=== PATIENT | male | born 1985 | race Caucasian/White ===

== ENCOUNTER → 2017-12-03 17:00 | Outpatient (CLI) | payer BC, SELFPAY | PROVIDERS: Family Provider Family Medicine; PCP Family Medicine; Visit Provider Surgery | DX: K43.9 Ventral hernia without obstruction or gangrene (principal) | CPT/HCPCS: 74177; Q9967 ==

== ENCOUNTER → 2019-01-22 16:47 | Outpatient (CLI) | payer OTHER, SELFPAY | PROVIDERS: Family Provider Family Medicine; PCP Family Medicine; Referring Provider Podiatrist; Visit Provider Podiatrist | DX: L03.116 Cellulitis of left lower limb (principal); L03.115 Cellulitis of right lower limb | CPT/HCPCS: 87070; 87075; 87077; 87186; 87205 ==

== ENCOUNTER → 2019-06-04 | Outpatient (CLI) | payer OTHER, SELFPAY | END | disposition home or self-care (01) | PROVIDERS: PCP Family Medicine; Referring Provider Podiatrist; Visit Provider Podiatrist | DX: L03.031 Cellulitis of right toe (principal) | CPT/HCPCS: 87070; 87205 ==

== ENCOUNTER 2020-05-02 15:08 | Emergency (ER) | payer OTHER, SELFPAY ==
[2020-05-02] VITALS (7 sets, daily range): BP systolic 126–159; BP diastolic 62–101; PULSE 93–115; RESP 18–32; TEMP 36.6–39; O2SAT 94–100; BMI 38.2
[2020-05-02 15:54] LABS: Absolute Lymphocyte Count 1.47 X10^3/uL (0.83-4.51); Absolute Neutrophil Count 7.4 X10^3/uL (2.0-7.7); Basophil# 0.05 X10^3/uL; Basophil% 0.5 % (0-1); Eosinophil# 0.28 X10^3/uL; Eosinophils% 2.7 % (0-5); Hemoglobin 16.6 g/dL (13.0-16.5); Lymphocyte # 1.47 X10^3/ul (4.0); Lymphocyte % 13.9 % (19-41); Mean Corp Hgb Conc 33.9 g/dL (32-36); Mean Corpuscular Volume 88.6 fL (80-94); Mean Platelet Vol. 10.4 fl (6.2-12.0); Monocyte# 1.29 X10^3/uL; Monocyte% 12.2 % (0-10); NRBC Flagged by Analyzer 0 % (0-5); Neutrophil # 7.37 X10^3/uL (2.7-7.7); Neutrophil % 69.9 % (47-70); Platelet Count 276 K/mm3 (150-450); RBC Distribution Width CV 11.5 % (11.6-14.6); RBC Distribution Width SD 36.9 fl (35.1-43.9); Red Blood Count 5.53 M/mm3 (4.6-6.2); White Blood Count 10.5 K/mm3 (4.4-11.0)
[2020-05-02] MEDS: morphine 8 MG/ML Syringe 6 MG IV ×2 (15:55→19:49)
[2020-05-02] MEDS: 0.9% Normal Saline 1,000 ML 999 ML IV (15:56)
[2020-05-02] MEDS: Ondansetron 4 MG/2 ML Vial IV (15:56)
[2020-05-02] MEDS: Ketorolac 15 MG/ML Vial IV (15:56)
[2020-05-02 16:02] LABS: Bacteria 0 SEEN /hpf (None Seen); Mucous, Urine 0 SEEN /hpf (<or=2+); Red Blood Cells-Urine 0 SEEN /hpf (0-5); Squamous Epithelial Cells - UA 0 SEEN /hpf (0-5); White Blood Cells 0 SEEN /hpf (0-5)
[2020-05-02 16:03] LABS: Color, Urine Yellow (Yellow); Glucose, Dipstick Normal (Normal); Ketone-Dipstick Negative (Negative); Leukocyte Esterase-Dipstick 25 /ul (Negative); Nitrite-Dipstick Negative (Negative); Occult Blood-Urine 10 /ul (Negative); Protein-Dipstick 30 mg/dl (Negative); Urine Bilirubin Dipstick Negative (Negative); Urine Clarity Clear (Clear); Urine Urobilinogen Normal (Normal); Urine pH 6.5 (5.0 - 8.0)
[2020-05-02 16:06] LABS: International Normalized Ratio 1.2; Partial Thromboplast Time 27.9 Seconds (24.1-36.2); Prothrombin Time (Protime)PT. 14.6 SECONDS (11.7-14.9)
[2020-05-02 16:10] LABS: Amorphous Sediment 1+
[2020-05-02 16:11] LABS: Lactic Acid 1.4 mmol/L (0.4-1.9)
[2020-05-02 16:12] LABS: ALB/GLOB Ratio 0.6 RATIO (0.9-2.4); AST(SGOT) 24 U/L (15-37); Alanine Aminotransfer ALT/SGPT 52 U/L (16-61); Albumin, Serum 3.1 g/dL (3.2-5.0); Alkaline Phosphatase 79 U/L (45-117); Anion Gap 6 (5-15); BUN 15 mg/dL (7-18); BUN/Creat Ratio 16.9 RATIO (10-20); CPK Total, Creatine Kinase 72 U/L (39-308); Calcium,Total 9.2 mg/dL (8.5-10.1); Chloride 102 mmol/L (98-107); Creatinine, Serum 0.89 mg/dL (0.70-1.30); EST Glomerular Filtration Rate 105 mL/min (>60); Est Glom Filt Rate - Afr Amer 127 mL/min (>60); Estimated Creatinine Clearance 133.42 ml/min; Glucose 106 mg/dL (74-106); Potassium 3.8 mmol/L (3.5-5.1); Protein, Total 8.1 g/dL (6.4-8.2); Sodium Level 136 mmol/L (136-145)
--- NOTE | 2020-05-02 16:20 | RAD_ITS ---
STUDY: X-RAY CHEST REASON FOR EXAM: Male, 34 years old. POST OP HERNIA REPAIR X6 DAYS AGO, REDNESS TO ABDOMEN, PAIN AND FEVER TECHNIQUE: AP COMPARISON: None. FINDINGS: EKG leads project over the chest. Linear atelectasis in the lung bases. No airspace consolidation. There is no demonstrated pleural abnormality. Normal size heart. Normal mediastinum and eli. Normal visualized pulmonary arteries. Normal visualized aortic arch and descending thoracic aorta. Normal visualized thoracic spine. Normal visualized ribs, clavicles, and shoulders. There is no demonstrated abnormality of the visualized soft tissue structures of the upper abdomen. RAD/Chest 1 View (Portable) IMPRESSION: Bibasilar atelectasis. No airspace consolidation. Electronically Signed: Artis Mead MD (Bro[place]) at 16:43 EST , Service support ,
--- NOTE | 2020-05-02 16:31 | CT_ITS ---
STUDY: CT ABDOMEN AND PELVIS WITH CONTRAST REASON FOR EXAM: Male, 34 years old. ABD PAIN S/P HERNIA REPAIR 04/26/20/FEVER. Hx of blunt force trauma to abdomen with colostomy and reversal RADIATION DOSAGE (If Supplied By Facility): CTDIvol = ( 15.42 ) mGy, DLP = ( 1341.35 ) mGycm TECHNIQUE: Transaxial images were obtained from the dome of the diaphragm to the symphysis pubis without oral contrast. 100 mL ISOVUE-300 was administered. Sagittal and coronal images were reconstructed. Individualized dose optimization techniques were used for this CT. COMPARISON: 12/03/2017 FINDINGS: There are chronic interstitial fibrotic changes of the lung bases. The visualized portions of the heart are within normal limits. There is mild gynecomastia. Normal liver. Normal gallbladder and extrahepatic biliary system. There is mild splenomegaly. Normal pancreas. Normal bilateral adrenal glands. Normal right kidney. Normal left kidney. Normal visualized stomach. Normal small intestine. There are multiple colonic diverticula consistent with diverticulosis. There is non-visualization of the appendix. Normal abdominal aorta. Normal inferior vena cava. Scattered pneumoperitoneum in the nondependent abdomen within allowable limits given recent surgery. Normal urinary bladder. The recent operative changes of the anterior abdominal wall. In the anterior abdominal cavity, there is 10 x 18 x 14.6 cm fluid collection with air-fluid level best seen on image 59 of series 2, just deep to the anterior abdominal wall. There does appear to be continuity with locules of air in the anterior abdominal wall (image 60 of series 2). There is mild stranding along the posterior and superior borders of the fluid collection. Normal osseous structures. CT/Abdomen/Pelvis WITH Contrast IMPRESSION: 1. 10 x 18 x 14.6 cm fluid collection with air-fluid level in the anterior abdominal cavity with loculations extending to the superficial abdominal wall. May represent postoperative collection such as hematoma, seroma or abscess. 2. Pneumoperitoneum within allowable limits given recent surgery. Electronically Signed: Artis Mead MD (Brooks) at 18:32 EST , Service support ,
--- NOTE | 2020-05-02 16:38 | ED.VIS.GEN ---
History of Present Illness Chief Complaint: Abd Pain Informant: Patient Onset: Days Context: Gradual Onset Narrative: Patient is a 34-year-old male that is 6 days status post laparoscopic ventral hernia repair at [facility] by Dr. Gipson. He is presenting with worsening fever, abdominal pain and redness near his incision site. Patient states he has been feeling very bloated since the surgery and over the past 2 to 3 days had worsening fevers of maximum 103 ?F. Also having increasing pain near his midline incision site. He is also had body aches and malaise. He has had some associated diarrhea but no significant nausea or vomiting. He came in for repeat evaluation. No associated cough, chest pain or shortness of breath. No upper respiratory symptoms. No other complaints at this time. Past Medical History - Allergies and Home Meds Allergies/Adverse Reactions: Allergies erythromycin base [Erythromycin Base] Allergy (Verified 05/02/20 15:12) Hives Penicillins Allergy (Verified 05/02/20 15:12) Hives Primary Care Physician: Angel Luis Michelle MD [STAFF PHYSICIAN] - Past Medical History: None Surgical History: herniorrhaphy Lives: With Family Smoking Status: Never smoker - Family History Maternal Family History: Family History (Last Updated 11/23/17 @ 07:43 by Chantell Terrell) Father Hypertension Family History: Reports: - Review of Systems General: Reports: Chills, Fever, Malaise. Denies: Sweats Eyes: Denies: Visual changes - bilaterally, Diplopia ENT: Denies: Rhinorrhea, Sore throat Cardiovascular: Denies: Chest pain, Palpitations Respiratory: Denies: Dyspnea, Cough, Dyspnea on exertion Gastrointestinal: Reports: Abdominal pain, Diarrhea. Denies: Nausea, Vomiting, Melena, Hematochezia Genitourinary: Denies: Dysuria, Hematuria, Frequency Musculoskeletal: Reports: Myalgias. Denies: Back pain, Extremity Pain Skin: Reports: Rash - abdomen . Denies: Wounds Neurological: Denies: Headache, Weakness, Numbness Physical Exam Vital Signs/Narrative: Vital Signs Temp Pulse Resp BP Pulse Ox 05/02/20 16:30 102.2 F H 102 H 18 159/89 H 94 05/02/20 16:23 102.2 F H 102 H 18 159/89 H 94 05/02/20 15:13 98 F 115 H 20 H 149/101 H 98 Inital Vital Signs reviewed: Yes General: Well nourished, Well developed, No Acute Distress Head: Normocephalic, Atraumatic Eyes: Perrl, EOMI ENT: Moist mucous membranes, No rhinorrhea Neck: Supple, Nontender Cardiovascular: Regular rhythm, No murmurs, Tachycardia Respiratory: No distress, CTA bilaterally, Chest nontender Abdomen: Soft, Tender - Diffuse, no peritoneal signs, Hypoactive bowel sounds Back: Nontender, Normal Inspection Extremities: Nontender, No edema Skin: Rash - Erythema and warmth around umbilical surgical site with associated induration of the skin. Erythema extends approximately 5 cm x 12 cm middle of the abdomen. No fluctuance is appreciated. Neurological: Alert, Oriented x3, Cranial nerves II-XII grossly intact, Normal Strength, Normal Sensation Psychological: Normal affect, Normal Mood Diagnostic/Tx/Re-eval Chest X-Ray - ED: 1 View, Read by ED Physician, Read by Radiologist, No Acute Disease Clinical Impression(s) from Imaging Studies Chest X-Ray 05/02/20 16:20 IMPRESSION: Bibasilar atelectasis. No airspace consolidation. Electronically Signed: Artis Mead MD (Brooks) at 16:43 EST , Service support , Abdomen/Pelvis CT 05/02/20 16:31 IMPRESSION: 1. 10 x 18 x 14.6 cm fluid collection with air-fluid level in the anterior abdominal cavity with loculations extending to the superficial abdominal wall. May represent postoperative collection such as hematoma, seroma or abscess. 2. Pneumoperitoneum within allowable limits given recent surgery. Electronically Signed: Artis Mead MD (Brooks) at 18:32 EST , Service support , Laboratory Data 05/02/20 05/02/20 05/02/20 15:30 15:30 15:30 WBC 10.5 RBC 5.53 Hgb 16.6 H Hct 49.0 MCV 88.6 MCH 30.0 MCHC 33.9 RDW Std Deviation 36.9 RDW Coeff of Anabella 11.5 L Plt Count 276 MPV 10.4 Immature Gran % (Auto) 0.800 Neut % (Auto) 69.9 Lymph % (Auto) 13.9 L [place] % (Auto) 12.2 H Eos % (Auto) 2.7 Baso % (Auto) 0.5 Absolute Neuts (auto) 7.4 Absolute Lymphs (auto) 1.47 Nucleated RBC % 0 PT 14.6 INR 1.2 APTT 27.9 Sodium 136 Potassium 3.8 Chloride 102 Carbon Dioxide 28.0 Anion Gap 6 BUN 15 Creatinine 0.89 Estim Creat Clear Calc 133.42 Est GFR (MDRD) Af Amer 127 Est GFR (MDRD) Non-Af 105 BUN/Creatinine Ratio 16.9 Glucose 106 Lactic Acid Calcium 9.2 Total Bilirubin 0.60 AST 24 ALT 52 Alkaline Phosphatase 79 Total Creatine Kinase 72 Total Protein 8.1 Albumin 3.1 L Globulin 5.0 H Albumin/Globulin Ratio 0.6 L Urine Color Urine Clarity Urine pH Ur Specific [place] Urine Protein Urine Glucose (UA) Urine Ketones Urine Occult Blood Urine Nitrite Urine Bilirubin Urine Urobilinogen Ur Leukocyte Esterase Urine RBC Urine WBC Ur Squamous Epith Cells Amorphous Sediment Urine Bacteria Urine Mucus 05/02/20 05/02/20 15:30 15:56 WBC RBC Hgb Hct MCV MCH MCHC RDW Std Deviation RDW Coeff of Anabella Plt Count MPV Immature Gran % (Auto) Neut % (Auto) Lymph % (Auto) [place] % (Auto) Eos % (Auto) Baso % (Auto) Absolute Neuts (auto) Absolute Lymphs (auto) Nucleated RBC % PT INR APTT Sodium Potassium Chloride Carbon Dioxide Anion Gap BUN Creatinine Estim Creat Clear Calc Est GFR (MDRD) Af Amer Est GFR (MDRD) Non-Af BUN/Creatinine Ratio Glucose Lactic Acid 1.4 Calcium Total Bilirubin AST ALT Alkaline Phosphatase Total Creatine Kinase Total Protein Albumin Globulin Albumin/Globulin Ratio Urine Color Yellow Urine Clarity Clear Urine pH 6.5 Ur Specific [place] 1.020 Urine Protein 30 H Urine Glucose (UA) Normal Urine Ketones Negative Urine Occult Blood 10 H Urine Nitrite Negative Urine Bilirubin Negative Urine Urobilinogen Normal Ur Leukocyte Esterase 25 H Urine RBC 0 SEEN Urine WBC 0 SEEN Ur Squamous Epith Cells 0 SEEN Amorphous Sediment 1+ Urine Bacteria 0 SEEN Urine Mucus 0 SEEN - Medical Decision Making Patient evaluated for abdominal pain and fever in the postoperative status. Physical exam is concerning for associated surgical site infection differential does also include incarcerated hernia as well. Patient does not have a peritoneal abdomen. Surgery on-call for Dr. Gipson, Dr Sweeney, is paged who would like CT abdomen and pelvis with oral and IV contrast. She would like to hold antibiotics at this time until CT is resulted. Patient is treated with morphine, Zofran, Toradol and fluids for fever and symptomatic control. CT is concerning for acute intra-abdominal infection. Patient will be transferred to [facility] where he can be evaluated with Dr. Gipson. Patient started on aztreonam as he is allergic to penicillins. He is symptomatically improved while in the emergency room. He is given 1 dose of morphine prior to transfer for further pain control. Is agreeable with plan of care and stable at time of disposition. ED Disposition - Plan for ED Patient: Disposition: Acute [facility] - Other Diagnosis: Postoperative infection, Abdominal wall cellulitis Referrals: Angel Luis Michelle MD [STAFF PHYSICIAN] -
== END 2020-05-02 20:03 | disposition short-term general hospital (02) ==
PROVIDERS: Emergency Provider Emergency Medicine
DX: T81.40XA Infection following a procedure, unspecified, initial encounter (principal); L03.311 Cellulitis of abdominal wall; Z79.899 Other long term (current) drug therapy; Z88.0 Allergy status to penicillin; Z88.1 Allergy status to other antibiotic agents
CPT/HCPCS: 71045; 74177; 80053; 81001; 82550; 83605; 85025; 85610; 85730; 87040; 96361; 96365; 96375; 96376; 99285; J7030; J7050; Q9967; A4216; J2405

== ENCOUNTER → 2023-06-21 | Outpatient (CLI) | payer BC, SELFPAY ==
--- NOTE | 2023-06-21 10:00 | VAS_PTH ---
PATHOLOGY RESULTS PATIENT: CONSTANCE ORTIZ LOC: [facility] U#:[id number] AGE/SX: 37/M ROOM: RE06/21/[address]: Dr. Raudel Roth MD : 1985 BED: DIS: 06/21/2023 SPEC #: [id number] RECD: 06/22/23 07:13 STATUS: JACKIE REMichael #: [id number] [place]: 06/21/23 10:[address]: Raudel Roth DEPT: SURGICAL PATHOLOGY RECD BY: Osiris Damon ENTERED: 06/22/23 07:14 SP TYPE: VAS OTHR DR: Dr. Melinda Farias, DO Tissues: Vas deferens, NOS Vas deferens, NOS Procedures: Surgery Specimen Level II HEADER OPERATION: Bilateral partial vasectomy PRE-OP DIAGNOSIS: Sterilization TISSUE SUBMITTED: A- Left vas deferens, B- Right vas deferens MICROSCOPIC DIAGNOSIS A. Left vas deferens, partial vasectomy: Completely transected segment of vas deferens, no pathologic diagnosis. B. Right vas deferens, partial vasectomy: Completely transected segment of vas deferens, no pathologic diagnosis. S[place]: 06/25/23 MICROSCOPIC DESCRIPTION Slides are reviewed. GROSS DESCRIPTION A - Received is one container designated Left vas deferens. The specimen consists of a tubular segment of qiu soft tissue measuring 0.8 cm in length and 0.3 cm in diameter. The specimen is sectioned and submitted entirely in one cassette. B - Received is one container designated Right vas deferens. The specimen consists of a tubular segment of qiu soft tissue measuring 1.3 cm in length and 0.2 cm in diameter. The specimen is sectioned and submitted entirely in one cassette. / SJ: 06/22/23 TC:4 [facility]: [id number] [id number]
--- OUTSIDE RECORDS SUMMARY | 2023-06-21 22:17 | XMS RPT_ITS | CCD ---
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 area. Small bowel was mobilized and no obvious leak was found. Two drains were placed. The patient had return of bowel function and was tolerating a diet and was discharged to home. He returns today for follow-up. He notes minimal output from both drains and no signs of GI contents in the drainage. his appetite has been good. he denies fever, chills or abdominal pain. he does note some mild incisional discomfort. he notes no bulges at the operative site. There is no signs of succus or other fluid in the drain output. Both drains were removed on May 11. The patient had his robb removed on May 20. The patient had a low-grade fever and noted some redness at one of the upper incision staple sites. He squeezed the area and got a scant amount of old bloody discharge. He returns now noting a bulge at his mid abdominal incision area. He wishes to have this evaluated for possibility of recurrent incisional hernia VITALS: Blood pressure 128/74, pulse 108, temperature 37 ?C (98.6 ?F), height 185.4 cm (6' 1 ), weight (!) 147 kg (324 lb), SpO2 97 %. On examination, the abdomen is benign. The incision is healing well without signs of infection or inflammation. There is a recurrent hernia at his periumbilical area. Assessment IMPRESSION: status post laparoscopic incisional hernia repair with mesh, complicated with infection, questionable bowel injury/leak, mesh removal postoperative day nine -now recurrent incisional hernia. PLAN: I plan to obtain a CT scan of the abdomen pelvis to determine the extent of his recurrence. Given his complex history I would recommend once the scan has been obtained referral to the hernia center at [place] for likely component separation repair. I discussed with the patient that he would need to lose weight prior to repair of this hernia.. Diagnoses: (K43.2) Incisional hernia, without obstruction or gangrene (primary encounter diagnosis) (T81.41XD) Infection of superficial incis (more content not included)... [facility] Evaluation note Note Date & Type Note Facility documented in this encounter [facility] Work Phone: Summary Purpose Family History No Family History Records FoundNo Family History Records FoundNo Family History Records FoundNo Family History Records FoundNo Family History Records FoundNo Family History Records FoundNo Family History Records Found Advance Directives No Advanced Directives Records FoundNo Advanced Directives Records FoundNo Advanced Directives Records FoundNo Advanced Directives Records FoundNo Advanced Directives Records FoundNo Advanced Directives Records FoundNo Advanced Directives Records Found Hospital Course Note HNO ID: [id number] Author: Sharmaine Coello Service: General Surgery Author Type: Physician Type: Discharge Summary Filed: 05/09/2020 11:04 AM Note Text: DISCHARGE SUMMARY PATIENT NAME: Constance Ann Code Status: Not on file Highest Readmission Risk Score: 10 The 30 day readmissions risk score is derived from an internally validated risk model which evaluates patient level characteristics, utilization history, medication orders and lab results up until the day of discharge. Patients with a score of 40 or above are considered highest risk for readmission. Specific patient level drivers will be listed at the bottom of the summary. Admission Information Admission Information ADMIT DATE: 05/02/2020 DISCHARGE DATE: 05/09/2020 MY DOCTORS AND MEDICAL TEAM: My Main Hospital Doctor: Marlo Sesay Primary Care Provider: Eric Connors MD My Medical Team Members: Treatment Team: Attending Provider: Marlo Sesay MY CONDITION AT DISCHARGE: Good REASON I WAS IN THE HOS (more content not included)... Note HNO ID: [id number] Author: Wilver Marquez Service: ? Author Type: Nurse Operations Manager Station Type: Anesthesia Procedure Notes Filed: 04/26/2020 8:04 AM Note Text: ANESTHESIOLOGY PROCEDURE NOTE Airway General Information Procedure Start Time/Medication Administration: 04/26/2020 7:53 AM Patient location during procedure: OR Timeout Performed Pre-procedure: timeout performed Consent Obtained: Yes Patient identity confirmed: arm band and patient Staffing STRAINER TENDER: Ayesha Marquez Performed by: LEON Indications and Patient Condition Preoxygenated: yes Patient position: sniffing Difficult Mask: No Indications for airway management: anesthesia anesthesia circuit Method: sleep Cricoid Pressure: Yes Final Airway Details Final airway type: endotracheal airway Final Endotracheal Airway: ETT Cuffed: yes Successful intubation technique: direct laryngoscopy Blade: Kane Blade size: #4 ETT size (mm): 7.5 Measured from: lips Placement verified by: capnometry Cormack-Lehane Classificati (more content not included)... Note HNO ID: [id number] Author: Wilver Marquez Service: ? Author Type: Nurse Operations Manager Station Type: Anesthesia Procedure Notes Filed: 05/05/2020 6:25 AM Note Text: ANESTHESIOLOGY PROCEDURE NOTE Airway General Information Procedure Start Time/Medication Administration: 05/05/2020 6:20 AM Patient location during procedure: OR Timeout Performed Pre-procedure: timeout performed Consent Obtained: Yes Patient identity confirmed: arm band and patient Staffing STRAINER TENDER: Aeysha Marquez Indications and Patient Condition Preoxygenated: yes Difficult Mask: No Indications for airway management: anesthesia anesthesia circuit Method: sleep Cricoid Pressure: Yes Final Airway Details Final airway type: endotracheal airway Final Endotracheal Airway: ETT Cuffed: yes Successful intubation technique: direct laryngoscopy Blade: Kane ETT size (mm): 4.0 Measured from: lips Measurement (cm): 22 Placement verified by: chest auscultation and capnometry Cormack-Lehane Classification: grade I - ful (more content not included)... Note HNO ID: [id number] Author: Vaughn Alvarado Service: ? Author Type: Anesthesiologist Type: Anesthesia Procedure Notes Filed: 05/05/2020 9:44 AM Note Text: ANESTHESIOLOGY PROCEDURE NOTE Peripheral Nerve Block General Information Patient location during procedure: OR Timeout Performed Pre-procedure: timeout performed Consent Obtained: Yes Patient identity confirmed: arm band Reason for block: post-op pain management/at surgeon's request Staffing Anesthesiologist: Bashir Alvarado Performed by: anesthesiologist Preparation Sterility Preparation: hand hygiene performed prior to procedure, surgical cap used, mask used, sterile drape used during line insertion, skin prep agent completely dried prior to procedure Site Prep: Chloraprep Pre-Procedure Neuro Exam Location: ABDOMEN Sensory: intact Motor: intact Procedure Details Patient Position: supine Monitoring: Pulse OX, EKG and NIBP Block Type Trunk: TAP block Laterality: bilateral Injection Technique: single-shot Ultrasound Guided: Yes Image i (more content not included)... Procedure Findings Note HNO ID: [id number] Author: Wilver Marquez Service: ? Author Type: Nurse Operations Manager Station Type: Anesthesia Procedure Notes Filed: 04/26/2020 8:04 AM Note Text: ANESTHESIOLOGY PROCEDURE NOTE Airway General Information Procedure Start Time/Medication Administration: 04/26/2020 7:53 AM Patient location during procedure: OR Timeout Performed Pre-procedure: timeout performed Consent Obtained: Yes Patient identity confirmed: arm band and patient Staffing STRAINER TENDER: Ayesha Marquez Performed by: LEON Indications and Patient Condition Preoxygenated: yes Patient position: sniffing Difficult Mask: No Indications for airway management: anesthesia anesthesia circuit Method: sleep Cricoid Pressure: Yes Final Airway Details Final airway type: endotracheal airway Final Endotracheal Airway: ETT Cuffed: yes Successful intubation technique: direct laryngoscopy Blade: Kane Blade size: #4 ETT size (mm): 7.5 Measured from: lips Placement verified by: capnometry Cormack-Lehane Classificati (more content not included)... Note HNO ID: [id number] Author: Wilver Marquez Service: ? Author Type: Nurse Operations Manager Station Type: Anesthesia Procedure Notes Filed: 05/05/2020 6:25 AM Note Text: ANESTHESIOLOGY PROCEDURE NOTE Airway General Information Procedure Start Time/Medication Administration: 05/05/2020 6:20 AM Patient location during procedure: OR Timeout Performed Pre-procedure: timeout performed Consent Obtained: Yes Patient identity confirmed: arm band and patient Staffing STRAINER TENDER: Ayesha Marquez Indications and Patient Condition Preoxygenated: yes Difficult Mask: No Indications for airway management: anesthesia anesthesia circuit Method: sleep Cricoid Pressure: Yes Final Airway Details Final airway type: endotracheal airway Final Endotracheal Airway: ETT Cuffed: yes Successful intubation technique: direct laryngoscopy Blade: Kane ETT size (mm): 4.0 Measured from: lips Measurement (cm): 22 Placement verified by: chest auscultation and capnometry Cormack-Lehane Classification: grade I - ful (more content not included)... Note HNO ID: [id number] Author: Vaughn Alvarado Service: ? Author Type: Anesthesiologist Type: Anesthesia Procedure Notes Filed: 05/05/2020 9:44 AM Note Text: ANESTHESIOLOGY PROCEDURE NOTE Peripheral Nerve Block General Information Patient location during procedure: OR Timeout Performed Pre-procedure: timeout performed Consent Obtained: Yes Patient identity confirmed: arm band Reason for block: post-op pain management/at surgeon's request Staffing Anesthesiologist: Bashir Alvarado Performed by: anesthesiologist Preparation Sterility Preparation: hand hygiene performed prior to procedure, surgical cap used, mask used, sterile drape used during line insertion, skin prep agent completely dried prior to procedure Site Prep: Chloraprep Pre-Procedure Neuro Exam Location: ABDOMEN Sensory: intact Motor: intact Procedure Details Patient Position: supine Monitoring: Pulse OX, EKG and NIBP Block Type Trunk: TAP block Laterality: bilateral Injection Technique: single-shot Ultrasound Guided: Yes Image i (more content not included)... Reason for Referral Specialty Diagnoses / Procedures Referred By Contac t Referred To Contact Diagnoses Obesity, Class III, BMI 40-49.9 (morbid obesity) (CMS/FORMERLY [facility]) Guerda Farias, DO [address] [facility] [address] Referral ID Status Reason Start Date Expiration Date V isits Requested Visits Authorized [id number] Pending Review 1 1 Additional Source Comments (unrecognized sect ion and content) No Status Records FoundNo Status Records FoundNo Status Records FoundNo Status Records FoundNo Status Records FoundNo Status Records FoundNo Status Records Found INFORMATION SOURCE (unrecogn ized section and content) DATE CREATED AUTHOR AUTHOR'S ORGANIZ ATION 03/04/2020 [facility] DATE CREATED AUTHOR AUTHOR'S ORGANIZ ATION 05/09/2020 [facility] DATE CREATED AUTHOR AUTHOR'S ORGANIZ ATION 12/20/2021 [facility] DATE CREATED AUTHOR AUTHOR'S ORGANIZ ATION 07/11/2022 [facility] ([place]) DATE CREATED AUTHOR AUTHOR'S ORGANIZ ATION 05/21/2023 [facility] DATE CREATED AUTHOR AUTHOR'S ORGANIZ ATION 05/21/2023 [facility] Reason for Visit (unrecogniz ed section and content) Care Teams (unrecognized sec tion and content) FOR RECORDS PERTAINING TO PATIENTS WHO ARE OR HAVE BEEN ENROLLED IN A CHEMICAL DEPENDENCY/SUBSTANCEABUSE PROGRAM, SOME INFORMATION MAY BE OMITTED. This clinical summary was aggregated from multiple sources. Caution should be exercised in using it in the provision of clinical care. This summary normalizes information from multiple sources, and as a consequence, information in this document may materially change the coding, format and clinical context of patient data. In addition, data may be omitted in some cases. CLINICAL DECISIONS SHOULD BE BASED ON THE PRIMARY CLINICAL RECORDS. [employer] provides no warranty or guarantee of the accuracy or completeness of information in this document.
== END | disposition home or self-care (01) ==
LOC: LABSPEC 15:58
PROVIDERS: PCP Internal Medicine; Referring Provider Surgery; Visit Provider Surgery
DX: Z30.2 Encounter for sterilization (principal)
CPT/HCPCS: 88302

== ENCOUNTER → 2023-07-28 | Outpatient (CLI) | payer BC, SELFPAY ==
--- NOTE | 2023-07-28 | CYSPIN_PTH ---
PATIENT: CONSTANCE ORTIZ LOC: LAB U#:[id number] AGE/SX: 37/M ROOM: RE07/28/[address]: Dr. Raudel Roth MD : 1985 BED: DIS: 07/28/2023 SPEC #: [id number] RECD: 07/30/23 10:13 STATUS: JACKIE PEYMAN #: [id number] L[place]IS: 07/28/23 00:[address]: Raudel Roth DEPT: CYTOLOGY RECD BY: Bruce Sanchez ENTERED: 07/30/23 10:14 SP TYPE: CYSPIN FL OTHR DR: Dr. Melinda Farias, Tissues: Cytologic material, NOS Procedures: Pap Stain (control) Special Stain Group II Cytospin Fluid HEADER OPERATION: Post vasectomy PRE-OP DIAGNOSIS: Post vasectomy status TISSUE SUBMITTED: Seminal fluid for cytology DIAGNOSIS CYTOLOGY Seminal fluid for cytology (cytospin): No spermatozoa identified. AM/mr 07/30/2023 CYTOLOGY STUDY Slides are reviewed. CYTOLOGY GROSS Received is 0.3 ml of cloudy opaque fluid labeled with the patient's name and and designated per the requisition as Seminal fluid. Submitted for cytology preparation including cell block. mr 07/30/23 TC:5 CPT: 72457
[2023-07-28 09:39] LABS: Cytology, Semen SEE PATHOLOGY REPORT
== END | disposition home or self-care (01) ==
PROVIDERS: PCP Internal Medicine; Referring Provider Surgery; Visit Provider Surgery
DX: Z30.2 Encounter for sterilization (principal)
CPT/HCPCS: 88108; 88313

== ENCOUNTER → 2023-08-04 | Outpatient (CLI) | payer BC, SELFPAY ==
--- NOTE | 2023-08-04 | CYSPIN_PTH ---
PATIENT: CONSTANCE ORTIZ LOC: [facility] U#:[id number] AGE/SX: 37/M ROOM: RE08/04/[address]: Dr. Raudel Roth MD : 1985 BED: DIS: 08/04/2023 SPEC #: [id number] RECD: 08/06/23 10:43 STATUS: JACKIE PEYMAN #: [id number] LOUIS: 08/04/23 00:[address]: Raudel Roth DEPT: CYTOLOGY RECD BY: Bruce Sanchez ENTERED: 08/06/23 10:43 SP TYPE: CYSPIN FL FLORENCIAHR DR: Dr. Melinda Farias, DO Tissues: Cytologic material, NOS Procedures: Pap Stain (control) Special Stain Group II Cytospin Fluid HEADER OPERATION: Post vasectomy PRE-OP DIAGNOSIS: Post vasectomy status TISSUE SUBMITTED: Seminal fluid DIAGNOSIS CYTOLOGY Seminal fluid for cytology (cytospin): No spermatozoa identified. AM/mr 08/07/23 CYTOLOGY STUDY Slides are reviewed. CYTOLOGY GROSS Received is 0.25 ml of thick cloudy fluid labeled with the patient's name and and designated per the requisition as Seminal fluid. Submitted for cytology preparation including cell block. mr 08/06/2023 TC:5 CPT: 18430
[2023-08-04 08:27] LABS: Cytology, Semen SEE PATHOLOGY REPORT
== END | disposition home or self-care (01) ==
LOC: LABSPEC 08:23
PROVIDERS: PCP Internal Medicine; Referring Provider Surgery; Visit Provider Surgery
DX: Z30.2 Encounter for sterilization (principal)
CPT/HCPCS: 88108; 88313

== ENCOUNTER 2023-09-09 08:32 | Emergency (ER) | payer BC, SELFPAY ==
[2023-09-09 08:33] VITALS: BP 134/102; PULSE 89; RESP 16; TEMP 36.4; O2SAT 95
--- NOTE | 2023-09-09 10:14 | EDS_ITS ---
HPI History of Present Illness Chief Complaint: Wound Narrative Narrative: 37-year-old male past medical history of peripheral neuropathy has had remote toe amputation/great toe amputation on his right foot remotely by Dr. Galindo. He presents with bleeding from his right foot, the plantar area that happened around 8:00 this morning. He does relate history that he has been trying to walk more. He was walking this morning at around 8:00 and felt like there was a rock in his shoe. He took off his shoe and there was a lot of blood. He denies falling but thinks as he was walking he sustained a laceration to his forefoot on the plantar aspect. He is unsure of his last tetanus immunization. [facility] Medical History Umbilical hernia without obstruction or gangrene Incisional hernia Incisional hernia Home Medications ?Medication ?Instructions ?Recorded ?Last Taken ?Type vitamin B complex 1 ea PO DAILY 05/02/20 Unknown History magnesium 200 mg tablet 200 mg PO DAILY 05/28/23 Unknown History fzafarhv-vpoaeosh-yftuj acid 400 tab PO 05/28/23 Unknown History mcg-vit K 20 mcg-lycop 300 mcg tablet (One-A-Day Men's Multivitamin) phentermine 37.5 mg capsule 37.5 mg PO DAILY 05/28/23 Unknown History Allergy/AdvReac Type Severity Reaction Status Date / Time erythromycin base Allergy Hives Verified 09/09/23 08:35 (Erythromycin Base) Penicillins Allergy Hives Verified 09/09/23 08:35 Family History Father Hypertension Surgical History Hx of foot surgery History of appendectomy H/O hernia repair History of colectomy Social History Smoking Status: Never smoker alcohol intake: current alcohol intake frequency: a few times a month substance use type: does not use ROS ROS ED ROS Narrative Constitutional: No fever, no chills. HEENT: No sore throat. No neck pain. No loss of vision. No rhinorrhea. Cardiovascular: No chest pain. No palpitations. No pedal edema. Respiratory: No cough, no shortness of breath. Abdominal: No abdominal pain. No nausea. No vomiting. Genitourinary: No dysuria. No hematuria. Musculoskeletal: No myalgias. No arthralgias. Neurologic: No headaches. No dizziness. No lightheadedness. Skin: No rash. No change in color. Positive laceration plantar aspect right forefoot Psychiatric: No depression. No anxiety. EXAM Physical Exam Narrative Exam Narrative: Afebrile. Vital signs noted. HEENT: Normocephalic. Atraumatic. PERRL, EOMI. Neck soft and supple. No point tenderness or step off. Cardiovascular: Regular rate and rhythm. No murmurs, rubs, or gallops appreciated. Respiratory: No tachypnea. Lungs clear to auscultation bilaterally. Gastrointestinal: Abdomen soft, nontender, with normoactive bowel sounds. No rebound or guarding. Neurological: Awake. Alert. Nonfocal, nonlateralizing. Skin: No rash. Normal color. No pallor. 8 cm laceration plantar aspect of forefoot, with area of blistering slightly more distal at the base of third and fourth toes. Musculoskeletal: No pedal edema. Full range of motion extremities. Const Vital Signs: 09/09/23 08:33 Temperature 97.5 F L Temperature Source Temporal Pulse Rate 89 Respiratory Rate 16 Blood Pressure 134/102 H Blood Pressure Mean 112 Pulse Ox 95 Oxygen Delivery Method Room Air MDM MDM MDM Narrative Medical decision making narrative: In discussion with the patient, he states he is already spoken with Dr. Galindo and prefers that he be evaluated. He will be given a tetanus immunization. I do feel this is a laceration that will require repair. I did discuss patient with Dr. Galindo. Patient prefers that he be evaluated by his administrative support clerk. In discussion with podiatry, this is more of a superficial laceration of his forefoot with blood blister that probably had popped. At this point in time, no suturing was required, so patient will be discharged to follow-up with podiatry in the next 3 to 5 days. Disposition is discharged in stable condition. Discharge Plan Triage Chief Complaint: Wound ED Provider: Javi Eaton Dx/Rx/DC Orders Clinical Impression: Blood blister, Neuropathy, Superficial laceration of foot Instructions: ED Blister (Adult), ED Laceration Superficial No Stitch, ED Neuropathy, Peripheral Prescriptions: No Action phentermine 37.5 mg capsule 37.5 mg PO DAILY Rx Instructions: must administer 30 minutes before or 1-2 hours after breakfast One-A-Day Men's Multivitamin 400-20-300 mcg tablet PO magnesium 200 mg tablet 200 mg PO DAILY vitamin B complex 1 EACH capsule 1 ea PO DAILY Primary Care Provider: Melinda Farias Referrals: Reji Galindo DPM [Med Staff - Active Staff] - 3-5 Days Melinda Farias DO [Primary Care Provider] - Activity Restrictions/Additional Instructions: Follow-up with Dr. Galindo early this week. Return with purulent drainage, fever, new or worsening symptoms. Print Language: Azerbaijani Disposition Disposition: Home, Self Care
[2023-09-09] MEDS: Diphth,Pertuss(Acell),Tet Vac 0.5 ML Vial IM (10:37)
--- NOTE | 2023-09-09 18:18 | PCM.CONS.GEN ---
Assessment & Plan Assessment/Plan (1) Blood blister: (2) Neuropathy: PLAN: Plan Evaluation performed. Reviewed findings and discussed with patient. Clinically there is ruptured blood blister to plantar forefoot (right) down to dermal layer, no subc tissue involvement and no laceration noted. The loose epidermal tissue was removed in sharp fashion keeping the viable tissue intact. Flushed site with normal saline soln and applied betadine, gauze, kerlix and kevin dressing - change daily. No weightbearing right foot, keep foot elevated. He is going to follow up with this coming week in office, sooner if needed. No evidence of infection so did not recommend antibiotics. HPI Consult Data Date of Consult: 09/09/23 HPI Narrative Reason for Consultation: wound on foot, right HPI Narrative: CONSTANCE ORTIZ, is a 37 M who presents with a wound to the bottom of his right foot. He relates he has been walking ore for exercise, but he has neuropathy. He noticed some pain, and bleeding from foot today while walking this morning. He came to ER. He also called me and sent me photos. He relates there was some pain, but he has neuropathy. I was called by ER physician for further evaluation. His is with him. He otherwise is doing well. [facility] Medical History Umbilical hernia without obstruction or gangrene Incisional hernia Incisional hernia Home Medications ?Medication ?Instructions ?Recorded ?Last Taken ?Type vitamin B complex 1 ea PO DAILY 05/02/20 Unknown History magnesium 200 mg tablet 200 mg PO DAILY 05/28/23 Unknown History xkuakbus-qmbbkazn-pqsur acid 400 tab PO 05/28/23 Unknown History mcg-vit K 20 mcg-lycop 300 mcg tablet (One-A-Day Men's Multivitamin) phentermine 37.5 mg capsule 37.5 mg PO DAILY 05/28/23 Unknown History Allergy/AdvReac Type Severity Reaction Status Date / Time erythromycin base Allergy Hives Verified 09/09/23 08:35 (Erythromycin Base) Penicillins Allergy Hives Verified 09/09/23 08:35 Family History Father Hypertension Surgical History Hx of foot surgery History of appendectomy H/O hernia repair History of colectomy Social History Smoking Status: Never smoker alcohol intake: current alcohol intake frequency: a few times a month substance use type: does not use Physical Exam Const alert, oriented x3 and no apparent distress Constitutional Narrative: Plantar right forefoot with ruptured blood blister down to dermal layer - no deeper involvement, no erythema, no maloder, no fluctuance, no crepitus, no visible abscess, no cellulitis, no streaking, CFT < 2 seconds to all toes, no evidence of ischemia to the foot, no evidence of compartment syndrome or DVT, chronic peripheral neuropathy to the foot, absent 1st toe from previous amputation.
== END 2023-09-09 11:27 | disposition home or self-care (01) ==
PROVIDERS: Emergency Provider Emergency Medicine; PCP Internal Medicine; Visit Provider Emergency Medicine
DX: S90.424A Blister (nonthermal), right lesser toe(s), initial encounter (principal); Z23 Encounter for immunization; X58.XXXA Exposure to other specified factors, initial encounter; Y93.01 Activity, walking, marching and hiking; G62.9 Polyneuropathy, unspecified; Z89.411 Acquired absence of right great toe
CPT/HCPCS: 90471; 90715; 99283; A4216